=== PATIENT | male | born 1995 | race Caucasian/White ===

== ENCOUNTER 2023-07-08 10:46 | Inpatient (IN) | payer SELFPAY ==
[~2023-07-08] VITALS: Ht 177.8 cm; Wt 93.8 kg
[2023-07-08] MEDS ORDERED: LR 1,000 ML IV ONE (11:45)
[2023-07-08 11:50] LABS: ALBUMIN 4.2 g/dL (3.5-5.0); BASO # 0.1 K/mm3 (0.0-0.2); BASO % 0.7 % (0.0-2.0); BILIRUBIN,TOTAL 0.6 mg/dL (0.2-1.2); CALCIUM 9.3 mg/dL (8.4-10.2); CREATININE, serum 1.29 mg/dL (0.72-1.25); EOS # 0.1 K/mm3 (0.0-0.7); EOS % 0.6 % (0.0-4.0); GRAN # 9.7 K/mm3 (1.4-6.5); GRAN % 76.7 % (42.2-75.2); HEMATOCRIT 47.6 % (42.0-52.0); HEMOGLOBIN 16.3 g/dl (13.5-18.0); LYMPH % 16.1 % (20.0-51.0); MEAN CELL VOLUME 87 fl (80.0-100.0); MEAN CORPUSCULAR HEMOGLOBIN 30 pg (27-31); MEAN CORPUSCULAR HGB CONC 34 g/dl (33.0-37.0); MONO # 0.7 K/mm3 (0.1-0.6); MONO % 5.5 % (1.7-9.3); PLATELET COUNT 391 K/mm3 (130-400); RED BLOOD COUNT 5.49 M/mm3 (4.20-5.60); REDCELL DISTRIBUTION WIDTH-CV 12.5 % (11.5-14.5); TOTAL PROTEIN 7.6 g/dl (6.2-8.1)
[2023-07-08] MEDS ORDERED: *Potassium Replacement Protocol MC SCH (12:45)
--- NOTE | 2023-07-08 13:25 | NUR ---
PT ARRIVED TO ICU 4 FROM ED AT THIS TIME. PT HAS JEANS ON BUT ALL OTHER BELONGING ARE IN SECURE LOCK UP WITH SECURITY. PT BEING ADMITTED FOR FENTANYL OVERDOSE AND IS CURRENTLY ON NARCAN GTT AT 1.5 MG/HR. PT ABLE TO WAKE BRIEFLY AND STATE HE IS COLD BUT DOES NOT ANSWER ANY QUESTIONS AND FALLS BACK ASLEEP SOON YOU STOP STIMULATING HIM. 1343- PATIENTS RESPIRATORY RATE NOW 6-7 BREATHES PER MINUTE WHILE ON NARCAN GTT. CALLED PHARMACY AND THEY RECOMMENDED KEEPING NARCAN GTT AT CURRENT RATE AND ADDING INTERMITTENT BOLUS DOSES OF NARCAN 0.4MG Q30MIN UNTIL RR >12. THIS NURSE THEN CALLED DR. WHITESIDE AND RECEIVED ORDER FOR PRN BOLUS DOSES OF NARCAN. ABG ALSO ORDERED PT DR. WHITESIDE. 1353- 0.4MG NARCAN GIVEN TO PATIENT IVP. THIS NURSE ALSO SPOKE WITH DR. MURPHY. DR. MURPHY RECOMMENED TO DO ABD AND CONTINUE TO GIVE BOLUS DOSES OF NARCAN. IF RR DOES NOT IMPROVE THEN LET HIM KNOW. 1358- KALANI, ETHYLENE PLANT OPERATOR AT BEDSIDE DRAWING ABG.
[2023-07-08 13:45] VITALS: BP 116/82; PULSE 75; TEMP 97.6
[2023-07-08] MEDS ORDERED: NS IV SCH (14:00)
[2023-07-08] MEDS ORDERED: Naloxone 0.4 MG/ML VIAL IV PRN (14:00)
[2023-07-08] MEDS ORDERED: NALOXONE IV SCH (14:00)
[2023-07-08 14:10] LABS: ARTERIAL BLD GAS O2 SATURATION 94.9 % (92-100); ARTERIAL BLD GAS TCO2 CT 27.7; ARTERIAL BLOOD GAS BASE EXCESS -1.4 (-2-2); ARTERIAL BLOOD GAS PCO2 54.4 mmHg (35-45)
--- NOTE | 2023-07-08 14:52 | NUR ---
PT CONTINUES TO HAVE DECREASED RR DESPITE O.4MG NARCAN IVP BEING GIVEN Q30MIN X2 DOSES. ORDER RECEIVED FROM DR. WHITESIDE TO GIVE 2MG NARCAN IVP X1 AND 0.3MG ROMAZICON IVP. THOSE MEDICATIONS GIVEN AT THIS TIME. PT'S LOC DID IMPROVE SIGNIFICANTLY AFTER THESE WERE GIVEN AND RR INCREASED TO 16. WILL CONTINUES TO MONITOR PT'S LOC AND RR.
--- NOTE | 2023-07-08 15:45 | NUR ---
PT RESPIRATORY RATE NOW 10 AND PT MORE ALERT WHEN WOKEN UP.
[2023-07-08 16:00] VITALS: BP 120/65; PULSE 65; TEMP 97.7
--- NOTE | 2023-07-08 16:17 | NUR ---
PT'S KIERRA WAS HERE TO SEE PT; STATES PT HAS HAD MULTIPLE OVERDOSES IN THE PAST. KIERRA CAN BE CONTACTED AT [phone].
--- NOTE | 2023-07-08 19:00 | NUR ---
PT HAS HIS JEANS ON. PT DECLINES TO REMOVE JEANS. POCKETS SEARCHED. PT HAS HIS WALLET AND A HANDKERCHIEF. PT AWAKENED AND WAS ABLE TO ANSWER QUESTIONS. MOVES ALL EXTREMETIES.
--- NOTE | 2023-07-08 19:15 | NUR ---
KIERRA CALLED AND SPOKE TO THE PATIENT. HE WENT BACK TO SLEEP. PT DENIES NEEDING TO URINATE.
[2023-07-08 20:00] VITALS: BP 118/76; PULSE 61; TEMP 97.7
--- NOTE | 2023-07-08 20:26 | NUR ---
DR. WHITESIDE CALLED FOR STATUS UPDATE. HE IS GOING TO PUT A NARCAN PUSH ORDER IN. PT STABLE AT THIS TIME NO SIGN OF DISTRESS. ETCO2 IS 42. PT IS ON ROOM AIR. RR DROPS TO 9 BUT DOES NOT SUSTAIN THERE. PT MAINTAINS RR OF 10 OR GREATER.
--- NOTE | 2023-07-08 20:50 | NUR ---
REMAINS STABLE ON ROUNDS. NO SIGN OF DISTRESS AT THIS TIME. CONTINUE WITH PLAN OF CARE.
--- NOTE | 2023-07-08 20:52 | NUR ---
PT HAS NOT VERBALIZED SUICIDAL IDEATION.
--- NOTE | 2023-07-08 21:20 | NUR ---
PT AWAKENED. HE ATE 1/3 OF MEAL AND THEN WENT BACK TO SLEEP.
[2023-07-09] VITALS: BP 110/60; PULSE 58; TEMP 97.6
--- NOTE | 2023-07-09 02:39 | NUR ---
PT DENIES SUIDICAL IDEATION WHEN ASKED. PT HAS BEEN COOPERATIVE. REMAINS STABLE ON ROUNDS. CONTIUE WITH PLAN OF CARE.
--- NOTE | 2023-07-09 02:43 | NUR ---
SECURITY HAS SOME OF THE PATIENTS BELONGINGS. PT HAS HIS WALLET, SOCKS, BELT, JEANS AND A HANDKERCHIEF. PT DENIES SI. PT HAS BEEN COOPERATIVE WITH STAFF. REMAINS STABLE ON ROUNDS. NARCAN DRIP INFUSING WITHOUT INCIDENT. CONTINUE PLAN OF CARE.
--- NOTE | 2023-07-09 02:49 | NUR ---
NO AGGRESSIVE BEHAVIOR NOTED. PT COOPERATIVE WITH STAFF. CONTINUE PLAN OF CARE.
[2023-07-09 04:00] VITALS: BP 118/75; PULSE 57; TEMP 97.7
--- NOTE | 2023-07-09 04:34 | NUR ---
PT REMAINS CALM AND COOPERATIVE. NO SIGN OF DISTRESS AT THIS TIME. CONTINUE WITH PLAN OF CARE.
[2023-07-09 05:03] LABS: BASO # 0.1 K/mm3 (0.0-0.2); BASO % 0.4 % (0.0-2.0); EOS # 0.2 K/mm3 (0.0-0.7); EOS % 1.4 % (0.0-4.0); GRAN # 9.3 K/mm3 (1.4-6.5); GRAN % 81.9 % (42.2-75.2); HEMATOCRIT 39.6 % (42.0-52.0); LYMPH # 1.2 K/mm3 (1.2-3.4); LYMPH % 10.6 % (20.0-51.0); MEAN CELL VOLUME 85 fl (80.0-100.0); MEAN CORPUSCULAR HGB CONC 36 g/dl (33.0-37.0); MONO # 0.6 K/mm3 (0.1-0.6); MONO % 5.3 % (1.7-9.3); RED BLOOD COUNT 4.68 M/mm3 (4.20-5.60); REDCELL DISTRIBUTION WIDTH-CV 12.9 % (11.5-14.5)
[2023-07-09 05:04] LABS: HEMOGLOBIN 14.2 g/dl (13.5-18.0); MEAN CORPUSCULAR HEMOGLOBIN 30 pg (27-31); PLATELET COUNT 224 K/mm3 (130-400)
[2023-07-09 05:23] LABS: ALBUMIN 3.3 g/dL (3.5-5.0); CALCIUM 8.8 mg/dL (8.4-10.2); CREATININE, serum 0.82 mg/dL (0.72-1.25); MAGNESIUM 1.8 mg/dL (1.6-2.6); PHOSPHOROUS 2.7 mg/dL (2.3-4.7); POTASSIUM 3.8 mEq/L (3.5-4.5)
--- NOTE | 2023-07-09 07:04 | NUR ---
PT REMAINS STABLE ON ROUNDS. NARCAN DRIP INFUSING WITHOUT INCIDENT. PT REMAINS COOPERATIVE WITH STAFF. PT HAS NOT VOIDED. THIS NURSE HAS ASKED PT EVERY 4 HOURS IF HE NEEDS TO VOID. PT STATED THIS MORNING THAT HE IS, "REALLY DEHYDRATED." PT STATES HE DOES NOT NEED TO VOID. NO SIGN OF DISTRESS AT THIS TIME. CONTINUE PLAN OF CARE.
--- NOTE | 2023-07-09 07:54 | NUR ---
NARCAN DRIP IS GOING TO BE DISCONTINUED THIS AM.
--- NOTE | 2023-07-09 07:58 | NUR ---
Called Dr. Marroquin, patient is alert and oriented, tired, but overall able to answer questions, ate breakfast, on room air, got up to urinate, to shut off Narcan gtt. It was shut off at 0735, PRN Narcan push is still available. Unable to get ahold of Hospitalist, number unreachable. Will continue to monitor for changes in mental status, LOC, and ability to function. Report changes as needed.
[2023-07-09 08:00] VITALS: BP 121/66; PULSE 62; TEMP 97.8
--- NOTE | 2023-07-09 09:31 | NUR ---
SW met with patient to complete intake. Patient provides he resides in [facility] and next of kin/point of contact is spouse Maria A Ruvalcaba. Patient provides he is independent with ADL's, does not utilize DME, and does not utilize home health services at this time. Patient provides he does not have a PCP at this time and may need resources to obtain, SW will assist with research for information. Patient utilizes [facility] as pharmacy and states he plans to return back to [facility] upon discharge. DELORIS will continue to follow. Discharge plan: back to [facility]
--- NOTE | 2023-07-09 09:43 | NUR ---
SW obtained referral providing she wanted rehab information for patient. SW obtained documentation for patient's spouse to nurse to provide in her absence. SW will continue to follow up for any questions related to documentaton.
[2023-07-09] MEDS ORDERED: NALOXONE 1MG/1 MG/ML IJ (09:52)
[2023-07-09] MEDS ORDERED: NARCAN4 MG NS (09:57)
[2023-07-09] MEDS ORDERED: Naloxone 0.4 MG/ML VIAL IV ONE (10:00)
[2023-07-09 12:00] VITALS: BP 112/75; PULSE 75; TEMP 98.1
--- NOTE | 2023-07-09 12:53 | NUR ---
Data: Machine Setter And Repairer visit attempted during Machine Setter And Repairer rounds. Patient was asleep. Assessment: None at this time. Plan of Care: Chaplains will remain available as needed/requested while Patient is admitted to this hospital.
--- NOTE | 2023-07-09 13:13 | NUR ---
aT 1245 Patient was discharged with family. Belongings brought and received from Security, a backpack, a clothes bag, and a suitcase. Both IV's were removed without complications. Education reviewed included overdose, drug use, drug and addiction cessation resources, phone numbers for help with drug and addiction given to me from manager social services Maureen. Narcan was prescribed to patient but he did ask if he had to fiber picker or if it was optional, I highly advised he picked it up and reviewed how to use it, method of use, and when to call for help if he felt he had overdosed or "had too much." Education was verbally regurgitated from family and patient. No further questions at this time.
== END 2023-07-09 12:45 | disposition home or self-care (01) | DRG 917 ==
LOC: COL.ER 10:46 → EDBD 10:46 → ICU 12:04
PROVIDERS: Emergency Medicine; ADMIT Internal Medicine
DX: T40.411A Poisoning by fentanyl or fentanyl analogs, accidental (unintentional), initial encounter (principal); J96.01 Acute respiratory failure with hypoxia; T40.2X1A Poisoning by other opioids, accidental (unintentional), initial encounter
CPT/HCPCS: J2310; J7040; J7120